=== PATIENT | female | born 1955 | race Caucasian/White ===

== ENCOUNTER 2017-10-28 10:54 | Day surgery (SDC) | payer BC ==
[~2017-10-28 10:54] MED LIST: CEFAZOLIN 1 GM INJ; CEFAZOLIN 2 GM/50 ML (PMX) 50 ML IVPB; SOD CHLORIDE 0.9% 1,000 ML IV
[2017-10-28] MEDS ORDERED: MIDAZOLAM 1 MG/ML 2 ML INJ (15:42)
[2017-10-28] MEDS: BUPIVACAINE 0.25% (MPF) 30 ML INJ (16:35)
[2017-10-28] MEDS: SOD CHLORIDE 0.9% 1,000 ML IV ×2 (16:43→19:08)
[2017-10-28] MEDS ORDERED: METOCLOPRAMIDE 10 MG INJ (16:53)
[2017-10-28] MEDS ORDERED: ONDANSETRON 4 MG INJ (16:53)
[2017-10-28] MEDS ORDERED: NEOSTIGMINE 3 MG/3 ML SYRINGE (16:54)
[2017-10-28] MEDS ORDERED: ROCURONIUM 50 MG INJ (16:54)
[2017-10-28] MEDS ORDERED: LIDOCAINE 2% (SDV) 5 ML INJ (16:54)
[2017-10-28] MEDS ORDERED: GLYCOPYRROLATE 0.4 MG INJ (16:54)
[2017-10-28] MEDS ORDERED: ETOMIDATE 20 MG INJ (16:54)
[2017-10-28] MEDS ORDERED: PROPOFOL 20 ML (16:54)
[2017-10-28] MEDS: CEFAZOLIN 2 GM/50 ML (PMX) 50 ML IVPB (17:00)
[2017-10-28] MEDS ORDERED: HYDROmorphONE (0.2 MG/ML) 10ML SYG IV ×2 (17:30)
[2017-10-28] MEDS ORDERED: DIPHENHYDRAMINE 50 MG INJ IV (17:30)
[2017-10-28] MEDS ORDERED: ONDANSETRON 4 MG INJ IV (17:30)
[2017-10-28] MEDS ORDERED: LABETALOL HCL 20MG INJ IV (17:30)
[2017-10-28] MEDS ORDERED: MEPERIDINE 25 MG INJ IV (17:30)
[2017-10-28] MEDS ORDERED: hydrALAzine 20 MG INJ IV (17:30)
[2017-10-28] MEDS ORDERED: FENTAnyl 50 MCG/ML VIAL IV (17:30)
[2017-10-28 17:31] LABS: ADD MAN DIFF? NO
[2017-10-28 17:35] LABS: WHITE BLOOD COUNT 10.2 10^3/ul (4.8-10.8)
[2017-10-28 17:35] LABS: BASOPHILS % 0.4 % (0.0-2.0); HEMATOCRIT 41.1 % (37.0-47.0); HEMOGLOBIN 13.6 g/dl (12.0-16.0); LYMPHOCYTES # 4.4 10^3/ul (0.8-2.9); LYMPHOCYTES % 43.1 % (15.0-51.0); MEAN CORPUSCULAR HEMOGLOBIN 28.6 pg (29.0-33.0); MEAN CORPUSCULAR HGB CONC 33.1 g/dl (32.0-37.0); MEAN CORPUSCULAR VOLUME 86.5 fl (82.0-101.0); MEAN PLATELET VOLUME 11.3 fl (7.4-10.4); MONOCYTE # 0.6 10^3/ul (0.3-0.9); MONOCYTES % 6.3 % (0.0-11.0); NEUTROPHIL # 5.1 10^3/ul (1.6-7.5); NEUTROPHILS % 50.1 % (39.0-77.0); PLATELET COUNT 218 10^3/UL (140-415); RED BLOOD COUNT 4.75 10^6/ul (4.20-5.40); RED CELL DISTRIBUTION WIDTH 13.1 % (11.5-14.5)
[2017-10-28 17:53] LABS: ALANINE AMINOTRANSFERASE 25 IU/L (13-69); ALBUMIN 4.3 g/dl (3.3-4.9); ALBUMIN/GLOBULIN RATIO 1.43; ALKALINE PHOSPHATASE 66 IU/L (42-121); ANION GAP 16 (8-16); ASPARTATE AMINO TRANSFERASE 26 IU/L (15-46); BILIRUBIN,INDIRECT 1.1 mg/dl (0-1.1); BILIRUBIN,TOTAL 1.1 mg/dl (0.2-1.3); CARBON DIOXIDE 24 mmol/L (21-31); CHLORIDE 107 mmol/L (97-110); GLUCOSE 136 mg/dl (70-220); TOTAL PROTEIN 7.3 g/dl (6.1-8.1)
[2017-10-28 17:58] LABS: BLOOD UREA NITROGEN 17 mg/dl (7-20); CALCIUM 9.5 mg/dl (8.4-10.2); SODIUM 143 mmol/L (135-144)
[2017-10-28] MEDS ORDERED: morphine 2 MG INJ IV (19:00)
[2017-10-28] MEDS ORDERED: ACETAMINOPHEN 325 MG TAB PO (19:00)
[2017-10-28] MEDS ORDERED: GLUCOSE GEL 15 GRAM TUBE PO ×2 (19:30)
[2017-10-28] MEDS ORDERED: DEXTROSE 50% 50 ML SYRINGE IV ×2 (19:30)
[2017-10-28] MEDS ORDERED: GLUCOSE GEL 15 GRAM TUBE BUCCAL (19:30)
[2017-10-28] MEDS ORDERED: GLUCAGON 1 MG INJ IM (19:30)
[2017-10-28] MEDS: morphine 2 MG INJ IV (20:15)
[2017-10-28] MEDS: INSULIN ASPART [NOVOLOG] 3 ML PEN SC (21:00)
[2017-10-28] MEDS: HYDROCODONE/APAP (5/325) TAB PO (23:25)
[2017-10-29] MEDS: ACCU-CHEK XX (02:00)
[2017-10-29] MEDS: CEFAZOLIN 2 GM/50 ML (PMX) 50 ML IVPB ×2 (02:17→09:32)
[2017-10-29] MEDS: SOD CHLORIDE 0.9% 1,000 ML IV ×2 (02:43→08:42)
[2017-10-29] MEDS ORDERED: VITAMIN A & D 5 GM OINT PACKET TOP (06:10)
[2017-10-29 06:53] LABS: ALANINE AMINOTRANSFERASE 50 IU/L (13-69); ALBUMIN 3.8 g/dl (3.3-4.9); ALBUMIN/GLOBULIN RATIO 1.31; ALKALINE PHOSPHATASE 67 IU/L (42-121); ANION GAP 13 (8-16); ASPARTATE AMINO TRANSFERASE 44 IU/L (15-46); BILIRUBIN,INDIRECT 0.6 mg/dl (0-1.1); BILIRUBIN,TOTAL 0.6 mg/dl (0.2-1.3); BLOOD UREA NITROGEN 17 mg/dl (7-20); CALCIUM 8.4 mg/dl (8.4-10.2); CARBON DIOXIDE 29 mmol/L (21-31); CHLORIDE 105 mmol/L (97-110); CREATININE 0.66 mg/dl (0.44-1.00); GLUCOSE 139 mg/dl (70-220); POTASSIUM 4.1 mmol/L (3.5-5.1); SODIUM 143 mmol/L (135-144); TOTAL PROTEIN 6.7 g/dl (6.1-8.1)
[2017-10-29] MEDS: INSULIN ASPART [NOVOLOG] 3 ML PEN SC ×3 (08:15→17:14)
[2017-10-29] MEDS ORDERED: PAROXETINE 10 MG TAB PO (10:00)
[2017-10-29] MEDS: LOSARTAN 25 MG TAB PO (12:06)
[2017-10-29] MEDS: CHOLECALCIFEROL 1,000 UNIT TAB PO (12:07)
[2017-10-29] MEDS: ASPIRIN (EC) 81 MG TAB PO (12:07)
[2017-10-29] MEDS: METOPROLOL (XL) 100 MG TAB PO (12:07)
[2017-10-29] MEDS: MULTIVITAMINS THERAPEUTIC TAB PO (12:07)
[2017-10-29] MEDS ORDERED: CALCIUM CARBONATE 1.25 GM TAB PO (17:00)
[2017-10-29] MEDS: CALCIUM CARBONATE 1.25 GM TAB PO (17:14)
[2017-10-29] MEDS: glyBURIDE 5 MG TAB PO (17:14)
[2017-10-29] MEDS ORDERED: ATORVASTATIN 10 MG TAB PO (21:00)
[2017-10-30] MEDS ORDERED: LEVOTHYROXINE 150 MCG TAB PO (07:00)
[2017-10-30] MEDS ORDERED: ALENDRONATE 70 MG TAB PO (08:00)
[2017-10-30] MEDS ORDERED: PAROXETINE 20 MG TAB PO (09:00)
[2017-10-31 17:11] LABS: PTH CALCIUM 8.8 mg/dL (8.6-10.4)
[2017-11-01 07:47] LABS: PTH INTACT 17 pg/mL (14-64)
== END 2017-10-29 18:25 | disposition home or self-care (01) ==
LOC: SDS 10:54 → REC 18:35 → SDS 10:54 → MS2 18:35 → SDS 10-29 18:25
DX: D35.1 Benign neoplasm of parathyroid gland (principal); E11.9 Type 2 diabetes mellitus without complications; I10 Essential (primary) hypertension; E78.5 Hyperlipidemia, unspecified; E66.9 Obesity, unspecified; Z68.33 Body mass index [BMI] 33.0-33.9, adult
CPT/HCPCS: 60500; 80053; 82310; 82962; 83970; 85025; 88305; 88331